=== PATIENT | male | born 1970 | race Caucasian/White ===

== ENCOUNTER 2021-07-27 09:27 | Outpatient (CLI) | payer OTHER, SELFPAY ==
--- NOTE | 2021-07-27 09:33 | ECG_ITS ---
Measurements Intervals [place] Rate: 65 P: -8 OK: 126 QRS: 47 QRSD: 102 T: 16 QT: 370 QTc: 387 Interpretive Statements SINUS RHYTHM ATRIAL PREMATURE COMPLEX DELAYED PRECORDIAL R/S TRANSITION BASELINE ARTIFACT- I, II, III, AVR, AVL, AVF BORDERLINE ECG Electronically Signed On 07-27-2021 10:03:01 [employer] by Shane Broussard D.O.
== END 2021-07-27 09:28 | disposition home or self-care (01) ==
LOC: ANHSURGERY 09:30
PROVIDERS: PCP Internal Medicine; Visit Provider Orthopaedic Surgery
DX: Z01.818 Encounter for other preprocedural examination (principal); I10 Essential (primary) hypertension; R94.31 Abnormal electrocardiogram [ECG] [EKG]
CPT/HCPCS: 93005

== ENCOUNTER 2021-07-31 01:13 | Day surgery (SDC) | payer OTHER, SELFPAY ==
[2021-07-26 10:35] VITALS: BMI 33.7
--- NOTE | 2021-07-26 10:46 | PC.NURSE ---
Report to the Outpatient Waiting Room, entrance under the green pavilion located off [facility], at time 7:30 on date 07/31/21. OR Time: 9:30. - You will be asked a series of questions to screen for COVID 19 for your protection. - A mask is required within the hospital. - No visitors are allowed at this time. Preoperative COVID Testing Requirements: No COVID Test needed if: (proof is required; if not received patient will have Rapid Test prior to entry) - Patient has received COVID Vaccine at least 14 days prior to procedure date or - Patient has positive COVID test result within last 90 days of surgery date. COVID Test needed if above criteria is not met Patients may have clear liquids (water, carbonated beverages, clear teas, apple juice) until 3 hours prior to surgery (6:30) with a maximum of 20 ounces. - No food from midnight until time of surgery Take the following medications with a SIP of water the morning of surgery: NONE Medications to discontinue per physician: VITAMINS Date to take last dose: 07/27/21 Please no make-up, nail greenlandic, hairspray, perfume, deodorant, or body powder the day of surgery. No jewelry (including any body piercings) or valuables the day of surgery, leave them at home. Please take a shower or bath the night before, or the morning of, surgery with an antibacterial soap. Wear comfortable, loose fitting clothing. - Jewelry must be removed prior to entering the operating room. Rings and piercings that are not removed may be cut off. - The hospital will not accept responsibility for valuables. - Please leave all valuables, including medications, at home the day of surgery. If you are going home after surgery, a licensed piledriver carpenter must drive you home. - NO public transportation without another adult. - We recommend that an adult stay with you for 24 hours following discharge. - We also recommend that you do not drive, make important decision, drink alcoholic beverages, or take any drugs that were not prescribed by your health care provider for at least 24 hours after your discharge time. Follow any additional instructions given to you from your surgeon. Telephone instructions given to GORDO VASQUEZ and asked if any additional questions and then verbalized understanding. Patient advised to call surgeon office or pre surgery nurse liaison [phone] if any additional questions.
--- NOTE | 2021-07-28 10:32 | PM.IMHP ---
H&P: HPI History of Present Illness Date/Time: 07/28/21 10:32 Chief Complaint: Right ankle pain Narrative: Right ankle injury. DOI: 05/03/21, 3mos from injury. Pt states that he slipped at work and twisted his ankle. Pt states that the pain is located in the anterior and lateral ankle. Pt states that he has intermittent pain that will shoot up the leg. Pt is wearing a tall boot and states that it is helping with his pain. Pt is also doing RICE, taking aleve and tylenol with some relief. Pt had Right ankle arthrodesis on 05/06/14. Date of injury/condition: 05/03/21 Current symptoms: Reports instability and stiffness Location: right ankle, lateral and anterior Character: intermittent, radiating, throbbing and dull ache Onset: 3 months Effusion: 1 Exacerbated by: stairs, rotational activities and prolonged activity Improved by: anti-inflammatory meds, rest, ice, compression and elevation Improved by treatment/surgery: some Ankle previous treatments: Braces: right (boot) Effectiveness: effective, Ice: right Effectiveness: effective, Elevation: right Effectiveness: effective, Previous surgery: right (Right ankle Arthrodesis 05/06/14) Effectiveness: effective and Anti-inflammatory meds: right Effectiveness: effective Previous surgeries: fusion Date of surgery: 05/06/14 Incision/wound: healing well Review of Systems Constitutional: Constitutional: Denies fever(s) Eyes: Eyes: Denies blurry vision ENT: Reports Normal hearing present Cardiovascular: Cardiovascular: Denies chest pain and Denies dyspnea Respiratory: Respiratory: Denies dyspnea and Denies wheezing Gastrointestinal: Gastrointestinal: Denies abdominal pain Genitourinary: Genitourinary: Denies urinary urgency Musculoskeletal: Musculoskeletal: Reports as per HPI and Denies numbness Integumentary/Breasts: Skin/Breast: Denies changing lesions and Denies sores Neurologic: Reports Normal hearing present, Denies behavioral changes, Denies confusion, Denies numbness and Denies convulsions Psychiatric: Psychiatric: Denies behavioral changes, Denies confusion and Denies hallucinations Endocrine: Endocrine: Denies heat intolerance Hematologic/Lymphatic: Hematologic/Lymphatic: Denies easy bleeding Allergic/Immunologic: Allergic/Immunologic: Denies wheezing PMFSH Past Medical History Medical History (Updated 07/28/21 @ 10:35 by Cruz Ken MD) Moderate ankle sprain 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 Painful orthopaedic hardware Right ankle pain Strain of right knee Family History Family History Other Hypertension Social History Social History Smoking packs per day: 0.75 Smoking cigarettes per day: 15.0 Years smoked: 30 Smoking pack-years: 22.50 Smoking status: Former smoker Tobacco type: cigarettes Smoking end date: 07/08/21 Alcohol intake: current Drinks per week: 5 Substance use: never Substance use type: does not use Spiritual care concerns: No Meds Home Medications and Allergies Home Medications Medication Instructions Recorded Confirmed Type cholecalciferol (vitamin D3) 25 mcg PO DAILY 07/26/21 07/26/21 History [Vitamin D3] lisinopril 40 mg PO DAILY 07/26/21 07/26/21 History Allergies Allergy/AdvReac Type Severity Reaction Status Date / Time No Known Allergies Allergy Verified 07/26/21 10:34 Exam Const: General: No confusion Orientation/consciousness: patient oriented x3 and No confusion HENMT: Head: normal to inspection, normocephalic and atraumatic Eyes: Conjunctivae: conjunctivae normal Sclera: sclerae normal Neck: Neck: supple and nontender Chest: Chest palpation & inspection: normal inspection of the chest Resp: Effort & Inspection: normal respiratory effort and no audible wheezes Cardio: Rate: regular rate Rhythm: regular rhythm : General: Yes deferr
[2021-07-31] VITALS (7 sets, daily range): BP systolic 114–151; BP diastolic 68–89; PULSE 68–88; RESP 11–18; TEMP 36.2–36.7; O2SAT 98–100
--- NOTE | ~2021-07-31 | XR_ITS ---
EXAMINATION: XR surgery orthopedic DATE: 07/31/2021 11:28 INDICATION: Right ankle hardware removal. TECHNIQUE: 5 intraoperative fluoroscopic views of right ankle were obtained. I was not present. Fluor oscopy exposure time was 111 seconds. COMPARISON: CT 09/05/2015, fluoroscopy 05/06/2014 FINDINGS: Bone alignment is normal. There is an old healed fracture of distal fibular diaphysis. Scre ws have been removed from the ankle. There is a retained screw fragment in lateral aspect of tibial m etadiaphysis. There is severe ankle joint space narrowing. IMPRESSION: 1. Removal of screws from the ankle. 2. Severe ankle joint space narrowing. No definite bridging bone after ankylosis procedure. Reviewed, dictated and finalized at location A. CLEANER IMPRESSION: 1. Removal of screws from the ankle. 2. Severe ankle joint space narrowing. No definite bridging bone after ankylosi s procedure.
--- NOTE | 2021-07-31 07:15 | WPDHPUPDATE1 ---
History and Physical Update Update Date/Time: 07/31/21 07:15 History and Physical has been reviewed, including an updated exam of the patient. There are NO changes in the patient's condition. Risks, benefits, and alternatives have been discussed and questions answered. Patient agrees to proceed with procedure.
[2021-07-31] MEDS: ACETAMINOPHEN 500 MG TABLET 1000 MG PO (08:00)
[2021-07-31] MEDS: LACTATED RINGERS 1,000 ML 30 ML IV CONT ×2 (08:16→11:38)
[2021-07-31] MEDS: KETOROLAC 15 MG/ML VIAL (*BKC) IV PUSH (08:20)
--- NOTE | 2021-07-31 08:33 | WPDANESEPPF ---
Anes - Initial Pre Proc Eval Procedure: Operation Date: 07/31/21 09:30 Proposed Procedures p Right Ankle, Removal of Hardware - Cruz Ken MD s with Possible Bone Graft - Cruz Ken MD Date/Time: 07/31/21 08:33 Surgeon: Cruz Ken MD Pre Op Diagnosis: right ankle painful hardware Patient Data Age: 51 Gender: M Height: 1.77 m Weight: 102.3 kg Last Vital Signs Temp 36.7 C 07/31/21 08:16 Pulse 73 07/31/21 08:16 Resp 16 07/31/21 08:16 BP 151/89 H 07/31/21 08:16 Pulse Ox 99 07/31/21 08:16 Allergies Allergy/AdvReac Type Severity Reaction Status Date / Time No Known Allergies Allergy Verified 07/31/21 07:47 Home Medications Medication Instructions Recorded Confirmed Type cholecalciferol (vitamin D3) 25 mcg PO DAILY 07/26/21 07/31/21 History [Vitamin D3] lisinopril 40 mg PO DAILY 07/26/21 07/31/21 History hydrocodone-acetaminophen 1 tablet PO Q6H PRN #30 tablet 07/31/21 Rx sennosides-docusate sodium [Senna 1 tab-cap PO HS #14 tablet 07/31/21 Rx with Docusate Sodium] Patient hx anesthesia problems: none Family hx anesthesia problems: none Results Review: All pre-operative results and documents have been reviewed as part of the pre-operative evaluation. [facility] Past Medical History Medical History (Updated 07/31/21 @ 08:33 by Mckinley Prabhakar MD) Hypertension Moderate ankle sprain 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 Painful orthopaedic hardware Right ankle pain Strain of right knee Family History Family History Other Hypertension Social History Social History Smoking packs per day: 0.75 Smoking cigarettes per day: 15.0 Years smoked: 30 Smoking pack-years: 22.50 Smoking status: Current every day smoker Tobacco type: cigarettes Smoking end date: 07/08/21 Alcohol intake: current Drinks per week: 5 Substance use: never Substance use type: does not use Living arrangements: with family Spiritual care concerns: No Anes - Eval Final PreProcedure Day of Procedure 07/31/21 08:33 Patient weight: obese Heart: regular rate and rhythm Lungs: decreased breath sounds Airway: Mallampati scale class II Neurological: alert and oriented Last oral intake: >/= 8 hours ASA classification: III Emergent: no Anesthetic plan: proceed Anesthesia type and monitoring: general LMA and standard monitoring Results Review: All pre-operative results and documents have been reviewed as part of the pre-operative evaluation. Informed Consent: The patient's anesthetic plan and its attendant risks and benefits were discussed with the patient/family/POA. Questions were solicited and answers provided to the satisfaction of the patient/family/POA.
[2021-07-31] MEDS: ceFAZolin 2 GM/D5W 50 ML 2 GM/50 ML BAG IVPB (09:03)
[2021-07-31] MEDS: BUPIVACAINE/EPINEPHRINE 0.25% 50 ML VIAL 10 ML INFILTRATE (09:49)
[2021-07-31] MEDS: BUPIVACAINE HCL 0.5% PF 30 ML VIAL INFILTRATE (11:24)
--- NOTE | 2021-07-31 14:42 | W.PM.PROC2 ---
Procedure Note - Detailed Date of Procedure 07/31/21 Pre-op Diagnosis right ankle painful hardware Post-op Diagnosis same Procedure Performed Removal of hardware from right fibula, right tibia. Bone graft ankle nonunion with small dowel graft iliac crest with aspirate. 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 Injury at work 4 months ago. Still with continued pain. Evidence of loosening of the hardware as well as areas of incomplete healing of the arthrodesis. Presents now for removal of hardware and bone graft application to the ankle. Description of Procedure Patient identified in the preoperative holding. Informed consent given. Operative extremity marked. Patient received intravenous antibiotics. Patient brought to the operating room where underwent general anesthetic by anesthesia team. Positioned supine on operating room table. Time-out performed confirming the patient, site of the surgery and the plan. right iliac crest area and right ankle prepped and draped usual sterile surgical fashion using a ChloraPrep skin solution. Bone graft was obtained 1st. Local anesthetic over the anterior iliac crest with 0.5% Marcaine plain. Fifteen blade knife used to make incision. Dissection carried down to the iliac crest. The iliac crest was entered and 4 small dowel grafts were removed with a coring needle. Aspirate was then obtained, total of 60 cc. The dowel grafts were left on the back table. The aspirate was prepared with centrifuge and mixed with demineralized bone matrix. We then addressed the right ankle. The foot ankle were exsanguinated and a thigh tourniquet inflated to 275 mmHg. Image intensification was used to locate to the to screws at the fibula. Stab incisions were made with 15 blade knife. Blunt dissection carried down and the screws removed. The more proximal screw fractured while removing. The broken hardware set was used to remove the threaded portion. Wound thoroughly irrigated including the iliac crest and wounds closed with subcutaneous 3 Monocryl interrupted suture and Steri-Strips. Tibial screws then addressed. A longitudinal incision was made over the anterolateral distal tibia with 15 blade knife. Hemostasis controlled electrocautery. We proceeded anterior to the fibula to locate the antegrade screw. Guide pin was placed through the screw. Portion of the fibula had to be resected to allow for room for the screw to be removed. Fibula was noted to have a fusion of the syndesmosis. Incision made over the sinus tarsi with a 15 blade knife and blunt dissection carried down to the more distal screw. Guide pin placed in this and the screw was removed without difficulty. Screw holes were then used for bone graft application. The iliac crest aspirate and demineralized bone matrix were then placed into a syringe and injected into the ankle fusion site through the screw holes. The small dowel core grafts impacted and placed through the screw holes. Image intensification confirmed placement. Wounds thoroughly irrigated with saline and fascia repaired with 2 Vicryl interrupted suture. Subcutaneous tissue repaired with Three 0 Monocryl interrupted suture and the skin repaired with 3 0 Monocryl running subcuticular stitch. Sterile dressing applied. The patient was then woken from anesthesia, extubated and taken to the recovery room in stable condition. All sponge, needle, instrument counts were correct at the end of the case. Implants None Estimated Blood Loss 70 Tourniquet Time 45 Drains No Packing No Pathology none sent Complications None Condition stable Disposition PACU
== END 2021-07-31 13:00 | disposition home or self-care (01) ==
PROVIDERS: PCP Internal Medicine; Visit Provider Orthopaedic Surgery
PROC: (CPT 20680; principal; 2021-07-31 09:30)
PROC: (CPT 20680; 2021-07-31 09:30)
DX: T84.84XA Pain due to internal orthopedic prosthetic devices, implants and grafts, initial encounter (principal); Y83.8 Other surgical procedures as the cause of abnormal reaction of the patient, or of later complication, without mention of misadventure at the time of the procedure; M96.0 Pseudarthrosis after fusion or arthrodesis; I10 Essential (primary) hypertension; E66.9 Obesity, unspecified; Z68.32 Body mass index [BMI] 32.0-32.9, adult; Z87.891 Personal history of nicotine dependence
CPT/HCPCS: 20680 ×2; 20900; A9270; J0690; J1040; J1100; J1644; J1885; J2250; J2405; J2704; J3010; J7120

== ENCOUNTER → 2022-11-05 13:23 | Outpatient (CLI) | payer OTHER, SELFPAY ==
--- NOTE | ~2022-11-05 | MR_ITS ---
MRI of the right ankle Clinical history: Pain, posttraumatic osteoarthritis Technique: Coronal proton-density and proton-density fat-sat images, axial proton-density and proton- density fat-sat images, and sagittal proton-density and proton-density fat-sat images were acquired. Findings: There is evidence of prior orthopedic surgery about the tibiotalar joint. Screw tracks are present in the distal tibia and talus. There is severe osteoarthritis of the tibiotalar joint, with m arked diffuse joint space narrowing, and reactive marrow edema about the joint space, with mild irreg ularity of the articular surfaces. There is mild degenerative change of the talonavicular articulatio n. Healed fracture deformity of the distal fibular shaft is present. Remaining visualized joint space s are relatively well-preserved. No other significant bone marrow signal abnormality seen. Syndesmotic ligaments are somewhat poorly delineated due to postoperative susceptibility artifact/pos toperative change. Anterior talofibular ligament is poorly delineated, and may be chronically torn. P osterior talofibular ligament, and calcaneofibular ligaments are probably intact. Deltoid ligament is somewhat poorly delineated. Medial flexor tendons, peroneal tendons, anterior extensor tendons, and Achilles tendon are intact. Plantar fascia intact. No mass lesion or abnormal fluid collection identified. Impression: Severe osteoarthritic change of the tibiotalar joint, as detailed above. Given history and evidence o f prior surgical intervention about the tibiotalar joint, this could be on a posttraumatic basis. Healed fracture deformity of the distal fibular shaft. Minimal degenerative change of the talonavicular articulation. Ligaments about the ankle are largely poorly delineated, likely related to chronic post traumatic and /or postoperative change. Reviewed, dictated and finalized at [facility]. Impression: Severe osteoarthritic change of the tibiotalar joint, as detailed above. Given history and evidence of prior surgical intervention about the tibiotalar joint, this could be on a posttraumatic basis. Healed fracture deformity of the distal fibular shaft. Minimal degenerative change of the talonavicular articulation. 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
== END ==
PROVIDERS: PCP Physician Assistant Medical; Visit Provider Physician Assistant Medical
DX: M19.071 Primary osteoarthritis, right ankle and foot (principal)
CPT/HCPCS: 73721

== ENCOUNTER 2024-06-11 10:05 | Day surgery (SDC) | payer OTHER, SELFPAY ==
[2024-02-28 10:28] VITALS: BMI 34.8
--- NOTE | 2024-06-10 11:45 | P.PNAN_ITS ---
Anes - Initial Pre Proc Eval Procedure: Operation Date: 06/11/24 12:45 Proposed Procedures p Screening Colonoscopy - Ken Bundy MD Date/Time: 06/10/24 11:45 Surgeon: Ken Bundy MD Pre Op Diagnosis: Noeplasm Screening Patient Data Age: 53 Gender: M Height: 1.75 m Weight: 109 kg Allergies Allergy/AdvReac Type Severity Reaction Status Date / Time atorvastatin AdvReac Severe Elevated Verified 06/11/24 10:57 CK, myalgias amlodipine AdvReac Flushing Verified 06/11/24 10:57 face and chest ezetimibe [From Zetia] AdvReac constipatio Verified 06/11/24 10:57 n nebivolol [From Bystolic] AdvReac cold and Verified 06/11/24 10:57 jittery coreg AdvReac Joint Pain Uncoded 06/11/24 10:57 coreg CR AdvReac Joint Pain Uncoded 06/11/24 10:57 Home Medications Medication Instructions Recorded Confirmed Type lisinopril 40 mg tablet 40 mg PO DAILY #90 tabs 02/20/24 05/25/24 Rx naproxen sodium 220 mg capsule 440 mg PO DAILY 05/11/24 05/25/24 History (Aleve) bempedoic acid 180 mg tablet 180 mg PO DAILY #30 tabs 06/03/24 Rx (Nexletol) hydrochlorothiazide 12.5 mg tablet 12.5 mg PO DAILY #30 tabs 06/05/24 Rx Patient hx anesthesia problems: none Family hx anesthesia problems: none Results Review: All pre-operative results and documents have been reviewed as part of the pre- operative evaluation. 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 Pt has not received assistance in the last 12 months. Smoking packs per day: 0.75 Smoking cigarettes per day: 15.0 Smoking status: Current every day smoker Tobacco type: cigarettes Smokeless tobacco user: chewing tobacco Alcohol intake: current Drinks per week: 30 Alcohol use details: Varies Substance use: never Substance use type: does not use Do You Feel Safe in your Home?: Yes Lack of Transportation: No Lack of Food: Never True Current Housing: I Have Housing Concerned About Future Housing: No Difficulty Paying Gas/Electric Bills: No Difficulty Paying for Meds: No Currently Unemployed: No Education: High School Diploma/GED Difficulty w/ Childcare or Family Care: No Living arrangements: with family Spiritual care concerns: No Anes - Eval Final PreProcedure Day of Procedure 06/10/24 11:45 Patient weight: obese Heart: regular rate and rhythm Lungs: clear to auscultation Airway: Mallampati scale class II Neurological: alert and oriented Last oral intake: >/= 8 hours ASA classification: III Emergent: no Anesthetic plan: proceed Anesthesia type and monitoring: general GIVS and standard monitoring Results Review: All pre-operative results and documents have been reviewed as part of the pre- operative evaluation. Informed Consent: The patient's anesthetic plan and its attendant risks and benefits were discussed with the patient/family/POA. Questions were solicited and answers provided to the satisfaction of the patient/family/POA.
[2024-06-11 11:15] VITALS: BP 150/92; PULSE 76; RESP 18; TEMP 36.8; O2SAT 97
--- NOTE | 2024-06-11 11:27 | PM.HPGS ---
History of Present Illness History of Present Illness Consent: Risks, benefits, and alternatives have been discussed and questions answered. Patient agrees to proceed with procedure. 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 Patient's current weight appetite is are normal. Patient denies abdominal pain. Has had no bleeding. Family history is noncontributory. 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 Pt has not received assistance in the last 12 months. Smoking packs per day: 0.75 Smoking cigarettes per day: 15.0 Smoking status: Current every day smoker Tobacco type: cigarettes Smokeless tobacco user: chewing tobacco Alcohol intake: current Drinks per week: 30 Alcohol use details: Varies Substance use: never Substance use type: does not use Do You Feel Safe in your Home?: Yes Lack of Transportation: No Lack of Food: Never True Current Housing: I Have Housing Concerned About Future Housing: No Difficulty Paying Gas/Electric Bills: No Difficulty Paying for Meds: No Currently Unemployed: No Education: High School Diploma/GED Difficulty w/ Childcare or Family Care: No Living arrangements: with family Spiritual care concerns: No Meds Home Medications and Allergies Home Medications Medication Instructions Recorded Confirmed Type lisinopril 40 mg tablet 40 mg PO DAILY #90 tabs 02/20/24 05/25/24 Rx naproxen sodium 220 mg capsule 440 mg PO DAILY 05/11/24 05/25/24 History (Aleve) bempedoic acid 180 mg tablet 180 mg PO DAILY #30 tabs 06/03/24 Rx (Nexletol) hydrochlorothiazide 12.5 mg tablet 12.5 mg PO DAILY #30 tabs 06/05/24 Rx Allergies Allergy/AdvReac Type Severity Reaction Status Date / Time atorvastatin AdvReac Severe Elevated Verified 06/11/24 10:57 CK, myalgias amlodipine AdvReac Flushing Verified 06/11/24 10:57 face and chest ezetimibe [From Zetia] AdvReac constipatio Verified 06/11/24 10:57 n nebivolol [From Bystolic] AdvReac cold and Verified 06/11/24 10:57 jittery coreg AdvReac Joint Pain Uncoded 06/11/24 10:57 coreg CR AdvReac Joint Pain Uncoded 06/11/24 10:57 Exam Narrative: Physical exam reveals patient to be alert. Vital signs stable. He exam is unremarkable. Patient is anicteric. Lungs are clear to auscultation and to percussion heart is without murmur or extra sounds. Abdomen bowel sounds are present soft nontender with no organomegaly. Digital external rectal exam is normal. Assessment and Plan Assessment and plan (1) Screen for colon cancer: Code(s): Z12.11 - Encounter for screening for malignant neoplasm of colon Status: Acute Assessment and Plan: Patient presents today for screening colonoscopy. He appears to be at average risk for colon polyps. Further recommendation is may be given after endoscopy.
[2024-06-11] MEDS: LACTATED RINGERS 1,000 ML 150 ML IV CONT (11:28)
[2024-06-11 12:43] VITALS: BP 137/89; PULSE 76; RESP 15; O2SAT 99
[2024-06-11 12:53] VITALS: BP 139/93; PULSE 66; RESP 16; O2SAT 100
[2024-06-11 13:03] VITALS: BP 155/97; PULSE 64; RESP 18; O2SAT 100
--- NOTE | 2024-06-11 13:18 | WPDANESPN ---
Anes - Prog Note Post-Op Date/Time: 06/11/24 13:18 Cardiovascular status: normal Respiratory status: normal Airway patency: baseline Mental status: baseline Post-Op hydration status: normal Vital Signs: Last Vital Signs Temp 36.8 C 06/11/24 11:15 Pulse 64 06/11/24 13:03 Resp 18 06/11/24 13:03 BP 155/97 H 06/11/24 13:03 Pulse Ox 100 06/11/24 13:03 O2 Del Method Room Air 06/11/24 13:03 Pain Score (VAS): 0 I/O: Intake & Output 06/10/24 06/11/24 06/11/24 23:59 07:59 15:59 Intake Total 225 Balance 225 Post-procedural complaints: none Patient Feedback: Patient satisfied with anesthetic care. Other Findings: Patient vital signs back to baseline. Patient denies nausea and vomiting. Patient's pain under control. Patient OK for discharge.
== END 2024-06-11 13:27 | disposition home or self-care (01) ==
PROVIDERS: PCP Physician Assistant Medical; Visit Provider Internal Medicine Gastroenterology
PROC: 0DJD8ZZ Inspection of Lower Intestinal Tract, Via Natural or Artificial Opening Endoscopic (ICD-10-PCS; CPT 45378; principal; 2024-06-11 12:45)
DX: Z12.11 Encounter for screening for malignant neoplasm of colon (principal); K57.30 Diverticulosis of large intestine without perforation or abscess without bleeding; K64.8 Other hemorrhoids
CPT/HCPCS: 45378